=== PATIENT | male | born 1975 | race Caucasian/White ===

== ENCOUNTER → 2022-03-29 | Outpatient (CLI) | payer OTHER ==
[~2022-03-29] MED LIST: ROSU40TA4 PO; THERTAB52 PO
== END ==
LOC: M LABSMTC 11:03
PROVIDERS: ATTEND Anesthesiology
DX: Z01.812 Encounter for preprocedural laboratory examination (principal)

== ENCOUNTER 2022-04-02 08:15 | Day surgery (SDC) | payer OTHER ==
[~2022-04-02] VITALS: Ht 182.9 cm; Wt 127.9 kg
[2022-04-02] MEDS ORDERED: LR 1,000 ML IV SCH ×3 (09:25→13:50)
[2022-04-02] MEDS ORDERED: LIDOCAINE 2% 100MG/5ML SDV (FOR ANES.) As Ordered ONE (10:27)
[2022-04-02] MEDS ORDERED: SUGAMMADEX SODIUM 500 MG/5 ML VIAL (BRIDION) As Ordered ONE (10:27)
[2022-04-02] MEDS ORDERED: dexameTHASONE 4 MG/ML 1ML VIAL (J1100 PER 1MG) As Ordered ONE (10:27)
[2022-04-02] MEDS ORDERED: propofoL 200 MG/20 ML VIAL As Ordered ONE (10:27)
[2022-04-02] MEDS ORDERED: MIDAZOLAM INJ 2MG/2ML VIAL (J2250 PER 1MG) As Ordered ONE (10:27)
[2022-04-02] MEDS ORDERED: fentaNYL 100 MCG/2 ML INJECTION As Ordered ONE (10:27)
[2022-04-02] MEDS ORDERED: ROCURONIUM BROMIDE 50 MG/5 ML VIAL As Ordered ONE (10:27)
[2022-04-02] MEDS ORDERED: ONDANSETRON 4MG 2ML VIAL As Ordered ONE (10:27)
[2022-04-02] MEDS ORDERED: POLYSPORIN TOPICAL OINTMENT 15GM As Ordered ONE (11:47)
[2022-04-02] MEDS ORDERED: LIDOCAINE W/EPINEPHRINE 1% 20ML VIAL As Ordered ONE (11:47)
[2022-04-02] MEDS ORDERED: oxyCODONE 5MG TAB PO PRN (13:10)
[2022-04-02] MEDS ORDERED: fentaNYL 100 MCG/2 ML INJECTION IV PRN (13:10)
[2022-04-02] MEDS ORDERED: ONDANSETRON 4MG 2ML VIAL IV PRN (13:10)
[2022-04-02] MEDS ORDERED: HYDROMORPHONE HCL 0.5 MG/ 0.5 ML SYRINGE (J1170 PER 1) IV PRN (13:10)
[2022-04-02 13:55] VITALS: BP 134/85
[2022-04-02] MEDS ORDERED: ACETAMINOPHEN 500 MG TAB PO SCH (16:00)
== END 2022-04-02 14:24 | disposition home or self-care (01) ==
LOC: M SDC 08:15 → EDUNIT# 12:30 → M SDC 14:24
PROVIDERS: ATTEND Otolaryngology
DX: L72.11 Pilar cyst (principal)
CPT/HCPCS: 11423; 12032; 88304; J1100; J2250; J2405; J3010

== ENCOUNTER 2024-05-25 08:37 | Day surgery (SDC) | payer OTHER ==
[~2024-05-25] VITALS: Ht 185.4 cm; Wt 121.7 kg
[~2024-05-25 08:37] MED LIST changes: -ROSU40TA4 PO; +ROSU40TA81 PO
[2024-05-25] MEDS ORDERED: LR 1,000 ML IV SCH (09:50)
[2024-05-25] MEDS ORDERED: ONDANSETRON 4MG 2ML VIAL As Ordered ONE (11:32)
[2024-05-25] MEDS ORDERED: propofoL 200 MG/20 ML VIAL As Ordered ONE (11:32)
[2024-05-25] MEDS ORDERED: LIDOCAINE 2% 100MG/5ML SDV (FOR ANES.) As Ordered ONE (11:32)
[2024-05-25] MEDS ORDERED: MIDAZOLAM INJ 2MG/2ML VIAL As Ordered ONE (11:32)
[2024-05-25] MEDS ORDERED: fentaNYL 100 MCG/2 ML INJECTION As Ordered ONE (11:32)
[2024-05-25] MEDS ORDERED: KETOROLAC 60MG 2ML VIAL As Ordered ONE (12:10)
[2024-05-25] MEDS: BACITRACIN OINTMENT 30GM TUBE As Ordered ONE (12:32)
[2024-05-25] MEDS: LIDOCAINE W/EPINEPHRINE 1% 20ML VIAL As Ordered ONE (12:53)
[2024-05-25 13:10] VITALS: BP 127/80; TEMP 97.7; O2SAT 96
== END 2024-05-25 13:30 | disposition home or self-care (01) ==
LOC: M SDC 08:37
PROVIDERS: ATTEND Otolaryngology
DX: L72.11 Pilar cyst (principal); G47.30 Sleep apnea, unspecified; Z79.899 Other long term (current) drug therapy
CPT/HCPCS: 11421; 11422; 12032; 88305; J1100; J1885; J2250; J2405; J3010